=== PATIENT | male | born 1960 | race Caucasian/White ===

== ENCOUNTER → 2022-10-10 | Outpatient (CLI) | payer MEDICARE | LOC: ORTHO 13:39 | PROVIDERS: ATTEND Orthopaedic Surgery | DX: M17.11 Unilateral primary osteoarthritis, right knee (principal) | CPT/HCPCS: 20610; G0463 ==

== ENCOUNTER → 2022-11-16 | Outpatient (CLI) | payer MEDICARE ==
--- NOTE | 2022-11-16 15:38 | Diagnostic Imaging Report ---
EXAMINATION: Right hip radiographs, 2 views. COMPARISON: None. HISTORY: 62-year-old male, chronic right hip pain. FINDINGS: There is severe joint space loss of the right hip. There is nwtq-cr-nuvi articulation. There is altered morphology of the contour of the right femoral head. There is incomplete coverage of the lateral aspect of the femoral head by the acetabulum. There is a potential ossified intra-articular body measuring 16 mm in size versus prominent os acetabula. There is severe disc height loss at L4-L5. There is no identified acute fracture. IMPRESSION: 1. End-stage arthritis of the right hip with altered contour of the right femoral head which could reflect subchondral collapse. There is incomplete coverage of the lateral aspect of the femoral head by the acetabulum. There is a 16 mm potential intra-articular body versus normal variant os acetabula. 2. Severe disc degenerative changes at L4-L5. Dictated by: Dictated on workstation # [id number]
== END ==
LOC: ORTHO 14:16
PROVIDERS: ATTEND Orthopaedic Surgery
DX: M51.36 Other intervertebral disc degeneration, lumbar region (principal); M16.11 Unilateral primary osteoarthritis, right hip
CPT/HCPCS: 73502; G0463; 99213

== ENCOUNTER → 2023-01-16 | Outpatient (CLI) | payer MEDICARE ==
[2023-01-16 15:19] LABS: BILIRUBIN,URINE NEGATIVE (NEGATIVE); CLARITY,URINE CLEAR; COLOR,URINE YELLOW; GLUCOSE, URINE (UA) NEGATIVE (NEGATIVE); KETONES,URINE NEGATIVE (NEGATIVE); LEUKOCYTE ESTERASE ,URINE NEGATIVE (NEGATIVE); NITRITE,URINE NEGATIVE (NEGATIVE); PROTEIN,URINE NEGATIVE (NEGATIVE)
[2023-01-16 15:24] LABS: BASOPHILS # (AUTO) 0.1 10^3/uL (0.0-0.1); BASOPHILS % (AUTO) 1 % (0-10); EOSINOPHILS # (AUTO) 0.5 10^3/uL (0.0-0.3); EOSINOPHILS % (AUTO) 6 % (0-10); HEMATOCRIT 35 % (40-54); HEMOGLOBIN 11.3 g/dL (13.3-17.7); LYMPHOCYTES # (AUTO) 3.3 10^3/uL (1.0-4.0); LYMPHOCYTES % (AUTO) 39 % (12-44); MEAN CORPUSCULAR HEMOGLOBIN 30 pg (25-34); MEAN CORPUSCULAR HGB CONC 32 g/dL (32-36); MEAN CORPUSCULAR VOLUME 91 fL (80-99); MEAN PLATELET VOLUME 9.8 fL (9.0-12.2); MONOCYTES # (AUTO) 1.1 10^3/uL (0.0-1.0); MONOCYTES % (AUTO) 13 % (0-12); NEUTROPHILS # (AUTO) 3.4 10^3/uL (1.8-7.8); NEUTROPHILS % (AUTO) 40 % (42-75); PLATELET COUNT 468 10^3/uL (130-400); WHITE BLOOD COUNT 8.4 10^3/uL (4.3-11.0)
[2023-01-16 15:29] LABS: BACTERIA,URINE TRACE /HPF; RBC,URINE RARE /HPF
[2023-01-16 15:31] LABS: CALCIUM 9.2 MG/DL (8.5-10.1); CREATININE SERUM 1.37 MG/DL (0.60-1.30); POTASSIUM 4.1 MMOL/L (3.6-5.0)
--- NOTE | 2023-01-16 16:01 | Diagnostic Imaging Report ---
EXAMINATION: Chest 2 view HISTORY: Preoperative exam COMPARISON: None available. FINDINGS: The lungs are clear without edema or pneumonia. No pleural effusion or pneumothorax. Heart size is normal. There is a calcified granuloma in the left lung. IMPRESSION: 1. Clear lungs. Dictated by: Dictated on workstation # [id number]
--- NOTE | 2023-01-16 17:16 | Diagnostic Imaging Report ---
EXAMINATION: Right hip radiograph EXAM DATE: 01/16/2023 3:32 PM COMPARISON: None available. HISTORY: Preoperative evaluation, right hip osteoarthritis TECHNIQUE: 2 views FINDINGS: There are severe degenerative changes of the right hip with superior subluxation of the femoral head within the acetabulum. There is abnormal morphology of the femoral head with underlying sclerotic change. There are scattered small osteophytes seen within the right hip joint. No acute fracture is seen. The soft tissues are normal. IMPRESSION: 1. Advanced degenerative changes of the right hip with superior subluxation of the right femoral head within the acetabulum as well as severe joint space narrowing and abnormal morphology of the femoral head. Dictated by: Dictated on workstation # [id number]
== END ==
LOC: ORTHO 14:11
PROVIDERS: ATTEND Orthopaedic Surgery
DX: Z01.89 Encounter for other specified special examinations (principal); M16.11 Unilateral primary osteoarthritis, right hip
CPT/HCPCS: 71046; 73502; 80048; 81000; 85025; G0463; 36415; 99213

== ENCOUNTER 2023-01-29 08:33 | Outpatient (CLI) | payer MEDICARE ==
[~2023-01-29] VITALS: Ht 182.9 cm; Wt 87.3 kg
[2023-01-29 08:54] VITALS: BP 138/86
[2023-01-29] MEDS ORDERED: ESOM20CA PO (09:13)
[2023-01-29] MEDS ORDERED: FENTANYL (09:13)
[2023-01-29] MEDS ORDERED: DICL20GE TP (09:13)
[2023-01-29] MEDS ORDERED: ESCI20TA39 PO (09:13)
[2023-01-29] MEDS ORDERED: CELE-63 PO (09:13)
[2023-01-29] MEDS ORDERED: FENO160T12 PO (09:13)
[2023-01-29] MEDS ORDERED: LEVO125C4 PO (09:13)
[2023-01-29] MEDS ORDERED: CHOL62.52 PO (09:13)
[2023-01-29] MEDS ORDERED: BUPIVACAINE (09:13)
[2023-01-29] MEDS ORDERED: SUMA100T3 PO (09:13)
== END 2023-01-29 10:16 | disposition home or self-care (01) ==
LOC: PREOP 08:33
PROVIDERS: ATTEND Orthopaedic Surgery
DX: Z01.818 Encounter for other preprocedural examination (principal)

== ENCOUNTER 2023-02-05 06:05 | Inpatient (IN) | payer MEDICARE ==
[2023-01-29 09:07] LABS: CLARITY,URINE CLEAR; COLOR,URINE YELLOW; GLUCOSE, URINE (UA) NEGATIVE (NEGATIVE); PROTEIN,URINE NEGATIVE (NEGATIVE)
[2023-01-29 09:08] LABS: BACTERIA,URINE NEGATIVE /HPF; BILIRUBIN,URINE NEGATIVE (NEGATIVE); KETONES,URINE NEGATIVE (NEGATIVE); LEUKOCYTE ESTERASE ,URINE NEGATIVE (NEGATIVE); NITRITE,URINE NEGATIVE (NEGATIVE); RBC,URINE RARE /HPF; SQUAMOUS EPITHELIAL CELL,UR 0-2 /HPF
[2023-01-29 09:49] LABS: BASOPHILS # (AUTO) 0.1 10^3/uL (0.0-0.1); BASOPHILS % (AUTO) 1 % (0-10); EOSINOPHILS # (AUTO) 0.4 10^3/uL (0.0-0.3); EOSINOPHILS % (AUTO) 4 % (0-10); HEMATOCRIT 35 % (40-54); HEMOGLOBIN 11.6 g/dL (13.3-17.7); LYMPHOCYTES % (AUTO) 34 % (12-44); MEAN CORPUSCULAR HEMOGLOBIN 30 pg (25-34); MEAN CORPUSCULAR HGB CONC 33 g/dL (32-36); MEAN CORPUSCULAR VOLUME 92 fL (80-99); MEAN PLATELET VOLUME 9.9 fL (9.0-12.2); MONOCYTES # (AUTO) 1.1 10^3/uL (0.0-1.0); MONOCYTES % (AUTO) 12 % (0-12); NEUTROPHILS # (AUTO) 4.3 10^3/uL (1.8-7.8); NEUTROPHILS % (AUTO) 49 % (42-75); PLATELET COUNT 560 10^3/uL (130-400); WHITE BLOOD COUNT 8.9 10^3/uL (4.3-11.0)
[2023-01-29 10:04] LABS: POTASSIUM 4.3 MMOL/L (3.6-5.0)
[2023-01-29 10:05] LABS: CALCIUM 9.1 MG/DL (8.5-10.1)
[2023-01-29 10:10] LABS: CREATININE SERUM 1.45 MG/DL (0.60-1.30)
[2023-02-05] VITALS (13 sets, daily range): BP systolic 118–154; BP diastolic 65–86
[~2023-02-05] VITALS: Ht 182.9 cm; Wt 87.3 kg
[~2023-02-05 06:05] MED LIST: BUPIVACAINE; CELE-63 PO; CHOL62.52 PO; DICL20GE TP; ESCI20TA39 PO; ESOM20CA PO; FENO160T12 PO; FENTANYL; LEVO125C4 PO; SUMA100T3 PO
[2023-02-05] MEDS ORDERED: ceFAZolin INJECTION 2,000 MG in NS (IVPB) 50 ML 50 ML IV ONE (06:15)
[2023-02-05] MEDS: LACTATED RINGERS 1,000 ML IV PRN ×2 (06:38→09:00)
[2023-02-05] MEDS ORDERED: MIDAZOLAM INJ 2 MG/2 ML VIAL ONE (06:58)
[2023-02-05] MEDS ORDERED: dexAMETHasone INJ 10 MG/ML 1 ML VIAL ONE (06:58)
[2023-02-05] MEDS ORDERED: ONDANSETRON 4 MG/2 ML (SDV) Z0FRAN ONE (06:58)
[2023-02-05] MEDS ORDERED: proPOfol 200 MG/20 ML (DIPRIVAN) VIAL IV ONE (06:58)
[2023-02-05] MEDS ORDERED: LIDOCAINE PF 2% 5 ML VIAL ONE (06:58)
[2023-02-05] MEDS ORDERED: ROCURONIUM 50 MG/5 ML (ZEMURON) VIAL IV ONE (06:58)
[2023-02-05] MEDS ORDERED: fentaNYL INJECTION 250 MCG/5 ML VIAL ONE (06:58)
[2023-02-05] MEDS ORDERED: fentaNYL INJECTION 100 MCG/2 ML VIAL IVP ONE ×2 (07:00→10:15)
[2023-02-05] MEDS ORDERED: fentaNYL INJECTION 100 MCG/2 ML VIAL ONE (07:01)
--- NOTE | 2023-02-05 07:14 | Progress Note-Pre Operative ---
Pre-Operative Progress Note Date of Available H&P: Jan 16, 2023 Date H&P Reviewed: Feb 05, 2023 Time H&P Reviewed: 07:05 History & Physical: H&P Reviewed, Patient Examed, No changes noted Pre-Operative Diagnosis: Right Hip Primary Osteoarthritis ALBERTO MISTRY MD Feb 05, 2023 07:14
[2023-02-05] MEDS ORDERED: TRANEXAMIC ACID 100 MG/ML 10 ML INJECTION ONE (07:46)
[2023-02-05] MEDS ORDERED: BUPIVACAINE 0.5% 30 ML VIAL ONE (09:21)
[2023-02-05] MEDS ORDERED: SEVOFLURANE (ULTANE) 15 ML INHAL SOLN ONE (09:43)
--- NOTE | 2023-02-05 10:05 | Operative Report - Ortho ---
Operative Report Surgeon (s)/Family Specialist (s) Surgeon ALBERTO MISTRY MD Family Specialist n/a Pre-Operative Diagnosis Right Hip Primary Osteoarthritis Post-Operative Diagnosis same Operative Report Date of Procedure: Feb 05, 2023 Name of Procedure Performed: Right Total Hip Arthroplasty Description & Findings After obtaining informed consent and marking the patient in the preoperative holding area, the patient did receive antibiotics and was taken to the operating room. General anesthesia was induced and patient was positioned in the lateral decubitus position with the left side up. Right lower extremity was prepped and draped in the usual sterile fashion. Surgical timeout was taken. Posterolateral approach was utilized. Capsule and external rotators were taken down in one layer. Hip was dislocated without difficulty. Femoral neck osteotomy was performed and femoral head was removed. Acetabulum was exposed. Labrum and soft tissue was removed from the acetabulum. Sequential reaming was began beginning with a 50 mm reamer and reaming to a 56 mm. 56 mm trial was placed and had good fit. Trial was removed and the acetabulum was lavaged with normal saline; a 56 mm cup was impacted into place and had excellent press fit. A polyethylene liner was impacted into place and the locking mechanism was checked. Attention was turned to the femoral side, a [employer] cutter osteotome was used to removed bone near the greater trochanter. Canal finder was inserted followed by the lateralizing reamer. Sequential broaching was began with a 1 and was broached to a 7. 132 degree neck and neutral head were put into place. Hip was located and was found to have grossly equal leg lengths; the hip was stable in position of sleep, and in flexion and internal rotation. This was accepted. Hip was dislocated. Broach was removed and the canal was irrigated. A size 7 Accolade II was impacted into place and set at the same level as the broach. A neutral 36 mm ceramic head was impacted onto the juarez taper of the stem. Hip was once again located and found to have grossly equal leg lengths with stabil ity in position of sleep as well as flexion and internal rotation. Irrisept soak was performed. The wound was irrigated. Capsular layer was repaired with #2 fiberwire. The fascial layer was closed with #2 Stratafix. The subcutaneous layer was closed with 2-0 Vicryl. Skin was closed with 3-0 v- loc. Wound was dressed with steri-strips, xeroform, 4x4s, ABD, and tape. Patient was placed in abduction pillow and transferred to the hospital bed without difficulty and was stable to the recovery room. Anesthesia Type General Estimated Blood Loss 1000 mL Specimen(s) collected/removed None ALBERTO MISTRY MD Feb 05, 2023 10:05
[2023-02-05] MEDS ORDERED: MILK OF MAGNESIA 400 MG/5 ML 30 ML UDC PO PRN (10:15)
[2023-02-05] MEDS ORDERED: ONDANSETRON 4 MG/2 ML (SDV) Z0FRAN IV PRN (10:15)
[2023-02-05] MEDS ORDERED: BISACODYL 5 MG TABLET PO PRN (10:15)
[2023-02-05] MEDS ORDERED: ONDANSETRON 4 MG/2 ML (SDV) Z0FRAN IVP PRN (10:15)
[2023-02-05] MEDS ORDERED: PROMETHAZINE INJ 25 MG/ML (PHENERGAN) AMP IVP ONE (10:15)
[2023-02-05] MEDS ORDERED: SUMAtriptan 50 MG (IMITREX) TAB PO PRN (11:30)
[2023-02-05] MEDS: NS IV 1000 ML 1,000 ML IV SCH ×2 (11:38→17:07)
--- NOTE | 2023-02-05 13:03 | Occ Therapy Progress Note ---
Therapy Progress Note OT order received OT to evaluate Sunday02/06/23 JOHN CORONA OT Feb 05, 2023 13:03
[2023-02-05] MEDS: fentaNYL INJECTION 100 MCG/2 ML VIAL IVP PRN ×4 (13:05→23:30)
[2023-02-05] MEDS: oxyCODONE IMMEDIATE RELEASE 5 MG TABLET PO PRN ×3 (13:55→23:30)
--- NOTE | 2023-02-05 14:09 | Physical Therapy Evaluation ---
PT Evaluation-General Medical Diagnosis Admission Date Feb 05, 2023 at 11:03 Medical Diagnosis: right hip OA Onset Date: Feb 05, 2023 Therapy Diagnosis Therapy Diagnosis: impaired mobility/weakness Precautions Precautions/Isolations: Fall Prevention, Standard Precautions Weight Bear Status Right Lower Extremity: Right Weight Bearing/Tolerated Left Lower Extremity: Left Full Weight Bearing hip precautions Referral Physician: Selwyn Reason for Referral: Evaluation/Treatment Medical History Current History s/p elective right THR Reviewed History: Yes Social History Home: Single Level Current Living Status: Spouse Prior Prior Level of Function SCALE: Activities may be completed with or without assistive devices. 9-Xmfklnhluk-xzjxyig completes the activity by him/herself with no assistance from a helper. 5-Set-up or Clean-up Assistance-helper sets up or cleans up; patient completes activity. [place] assists only prior to or following the activity. 4-Supervision or Touching Assistance-helper provides verbal cues and/or touching/steadying and/or contact guard assistance as patient completes activ ity. Assistance may be provided throughout the activity or intermittently. 3-Partial/Moderate Assistance-helper does LESS THAN HALF the effort. [place] lifts, holds or supports trunk or limbs, but provides less than half the effort. 2-Substantial/Maximal Assistance-helper does MORE THAN HALF the effort. [place] lifts or holds trunk or limbs and provides more than half the effort. 9-Dleojinhn-uzyjpo does ALL the effort. Patient does none of the effort to complete the activity. Or, the assistance of 2 or more helpers is required for the patient to complete the activity. If activity was not attempted, code reason: 7-Patient Refused. 9-Not Applicable-not attempted and the patient did not perform the activity before the current illness, exacerbation or injury. 10-Not Attempted due to Environmental Limitations-(lack of equipment, weather restraints, etc.). 88-Not Attempted due to Medical Conditions or Safety Concerns. Bed Mobility: 6 Transfers (B,C,W/C): 6 Gait: 6 Stairs: 6 Indoor Mobility (Ambulation): Independent Stairs: Independent PT Evaluation-Current Subjective Patient agrees to PT. Very "groggy". 10/10 right hip pain with meds issued. Pain Numeric Pain Scale: 10-Worst Possible Pain Location: Right Location Body Site: Hip Pain Description: Acute Objective Patient Orientation: Normal For Age Attachments: Pathak Catheter, IV ROM/Strength ROM Lower Extremities right hip precautions/left LE WFL Strength Lower Extremities right LE 3/5 grossly; left LE 4/5 grossly Integumentary/Posture Bladder Incontinence: Pathak Cath Posture WFL Neuromuscular (Tone, Coordination, Reflexes) grossly intact Sensory Vision: Functional Hearing: Functional Transfers Sit to Lying (QC): 3 Lying to Sitting/Side of Bed(Q: 3 Sit to Stand (QC): 3 Gait Mode of Locomotion: Walk Anticipated Mode of Locomotion: Walk Walk 10 feet (QC): 3 Walk 50 ft with 2 Turns(QC): 88 Walk 150 ft (QC): 88 Distance: 10' Gait Assistive Device: FWW Comments/Gait Description slow, antalgic Balance Sitting Static: Normal Sitting Dynamic: Normal Standing Static: Fair Standing Dynamic: Fair Assessment/Needs Patient will benefit from skilled PT to address functional strength and mobility to improve current LOF to safely return to home at maximum LOF. Rehab Potential: Fair PT Nursing Home Goals Senior Product Development Manager Goals PT Senior Product Development Manager Goals Time Frame: Feb 17, 2023 Roll Left & Right (QC): 6 Sit to Lying (QC): 6 Lying-Sitting on Side/Bed(QC): 6 Sit to Stand (QC): 6 Chair/Mxa-zf-Rarvd Xfer(QC): 6 Toilet Transfer (QC): 6 Walk 10 feet (QC): 6 Walk 50ft with 2 Turns (QC): 6 Walk 150 ft (QC): 6 PT Plan Problem List Problem List: Activity Tolerance, Functional Strength, Balance, Gait, Transfer, Bed Mobility Treatment/Plan Treatment Plan: Continue Plan of Care Treatment Plan: Bed Mobility, Education, Functional Activity Davy, Functional Strength, Gait, Safety, Therapeutic Exercise, Transfers Treatment Duration: Feb 17, 2023 Frequency: 11 times per week Estimated Hrs Per Day: .5 hour per day Patient and/or Family Agrees t: Yes Time Time In: 1320 Time Out: 1336 DATE: Feb 05, 2023 Total Billed Treatment Time: 16 Total Billed Treatment 1 visit EVMod 16 min JOB KRISHNAMURTHY PT Feb 05, 2023 14:09
--- NOTE | 2023-02-05 14:13 | Diagnostic Imaging Report ---
INDICATION: Status post right hip arthroplasty COMPARISON: 01/17/2020 TECHNIQUE: 2 radiographs of the pelvis are obtained dated 02/05/2023 FINDINGS: Recent interval placement of a right total hip arthroplasty is noted with postsurgical soft tissue gas within the region. No evidence of hardware complication. Pump is noted overlying the left pelvis with catheter extending to overlie the lumbar spine. Moderate degenerative changes of the partially visualized lumbar spine with associated osteophyte formation. Sacroiliac joints and pubic symphysis are intact. No acute fracture or dislocation. No destructive osseous process. Mild to moderate degenerative changes of the left hip. The junction of the left femoral head and neck demonstrates a convex margin. No suspicious radiopaque foreign body. IMPRESSION: Recent placement of a right total hip arthroplasty without hardware complication or acute osseous abnormality. Scattered degenerative changes, including within the lumbar spine and left hip. Configuration of the left femoral head and neck is present which can be seen with femoral acetabular impingement syndrome, CAM type. Dictated by: Dictated on workstation # [id number]
[2023-02-05] MEDS ORDERED: ceFAZolin INJECTION 2,000 MG ONE ×2 (14:40→20:07)
[2023-02-05] MEDS: ceFAZolin INJECTION 2,000 MG in NS (IVPB) 50 ML 50 ML IV SCH ×2 (14:46→20:14)
[2023-02-05] MEDS: ASPIRIN enteric coated 81MG TABLET PO SCH (17:03)
[2023-02-05] MEDS: ACETAMINOPHEN 500 MG TABLET PO PRN (17:03)
[2023-02-05] MEDS: CELECOXIB 100 MG CAPSULE PO SCH (20:01)
[2023-02-05] MEDS: DOCUSATE SODIUM 100 MG CAPSULE PO SCH (20:01)
[2023-02-05] MEDS ORDERED: NS (IVPB) 50 ML 50 ML ONE (20:07)
[2023-02-05] MEDS ORDERED: CELECOXIB 100 MG CAPSULE PO SCH (21:00)
[2023-02-06] MEDS: NS IV 1000 ML 1,000 ML IV SCH ×2 (00:34→07:43)
[2023-02-06] MEDS: fentaNYL INJECTION 100 MCG/2 ML VIAL IVP PRN ×13 (00:37→21:54)
[2023-02-06 03:16] VITALS: BP 140/73
[2023-02-06] MEDS: ACETAMINOPHEN 500 MG TABLET PO PRN ×3 (03:22→14:45)
[2023-02-06] MEDS: oxyCODONE IMMEDIATE RELEASE 5 MG TABLET PO PRN ×5 (03:22→21:52)
[2023-02-06] MEDS: THERAPEUTIC MULTIVITAMIN W/MINERALS TABLET PO SCH (05:16)
[2023-02-06] MEDS: LEVOTHYROXINE 125 MCG TABLET PO SCH (05:16)
[2023-02-06 05:28] LABS: HEMOGLOBIN 9.8 g/dL (13.3-17.7)
[2023-02-06 07:03] VITALS: BP 142/75
[2023-02-06] MEDS: CELECOXIB 100 MG CAPSULE PO SCH ×2 (07:38→19:35)
[2023-02-06] MEDS: CITALOPRAM 20 MG TABLET PO SCH (07:39)
[2023-02-06] MEDS: PANTOPRAZOLE 20 MG TABLET (PROTONIX) PO SCH (07:39)
[2023-02-06] MEDS: DOCUSATE SODIUM 100 MG CAPSULE PO SCH ×2 (07:39→19:36)
[2023-02-06] MEDS: ASPIRIN enteric coated 81MG TABLET PO SCH ×2 (07:39→17:13)
--- NOTE | 2023-02-06 07:39 | Anesthesia-General Post-Op ---
General Patient Condition Mental Status/LOC: Same as Preop Cardiovascular: Satisfactory Nausea/Vomiting: Absent Respiratory: Satisfactory Pain: Controlled Complications: Absent Post Op Complications Complications None Follow Up Care/Instructions Patient Instructions None needed. Anesthesia/Patient Condition Patient Condition Patient is doing well, no complaints, stable vital signs, no apparent adverse anesthesia problems. No complications reported per nursing. DELORIS AGUILAR CRNA Feb 06, 2023 07:39
[2023-02-06] MEDS: FENOFIBRATE, Micronized 134 MG CAPSULE PO SCH (07:43)
--- NOTE | 2023-02-06 08:24 | Progress Note - Ortho ---
Progress Note Subjective Date of Exam 02/06/23 Chief Complaint POD #1 R MARY HPI/Events since last exam pain better this AM, was able to be up out of bed yesterday, pain currently controlled Review of Systems - Allergies: Coded Allergies: hydromorphone (Verified Allergy, Mild, EYE MUSCLE SPASMS, 01/29/23) morphine (Verified Allergy, Mild, HEADACHES, 01/29/23) Home Meds Reported Medications Diclofenac Sodium (Voltaren Arthritis Pain) 1 % Gel..gram., 20 GM TP NEEDED, EA 01/29/23 Cholecalciferol (Vitamin D3) (Vitamin D3) 62.5 Mcg (2500 Unit) Capsule, 62.5 MCG PO DAILY, CAP 01/29/23 Esomeprazole Magnesium (Nexium) 20 Mg Capsule.dr, 20 MG PO DAILY, CAP 01/29/23 Sumatriptan Succinate (Sumatriptan Succinate) 100 Mg Tablet, 100 MG PO NEEDED for Headache MDD 200, TAB 01/29/23 Levothyroxine Sodium (Levothyroxine) 125 Mcg Capsule, 125 MCG PO DAILY, CAP 01/29/23 Fenofibrate (Fenofibrate) 160 Mg Tablet, 160 MG PO DAILY, TAB 01/29/23 Escitalopram Oxalate (Escitalopram Oxalate) 20 Mg Tablet, 20 MG PO DAILY, TAB 01/29/23 Celecoxib (Celecoxib) 200 Mg Capsule, 200 MG PO BID for Pain, CAP 01/29/23 [Fentanyl/Bupivicain ] No Conflict Check 01/29/23 Objective Exam R Hip: Dressing C/D/I, + DF of ankle, no s/s of DVT Vital Signs Vital Signs Date Time Temp Pulse Resp B/P (MAP) Pulse Ox O2 Delivery O2 Flow Rate FiO2 02/06/23 07:03 36.6 77 17 142/75 (97) 95 Room Air 02/06/23 04:15 36.8 02/06/23 03:22 38.0 02/06/23 03:16 38.0 87 18 140/73 (95) 95 Room Air 02/05/23 23:00 37.0 93 18 138/77 (97) 96 Room Air 02/05/23 20:00 Room Air 02/05/23 19:57 37.6 100 20 154/80 (104) 94 Room Air 02/05/23 15:55 Room Air 02/05/23 15:46 36.6 99 20 132/73 (92) 95 02/05/23 11:10 36.6 84 20 144/70 (94) 100 Room Air 02/05/23 10:55 Room Air 02/05/23 10:55 36.7 20 141/84 (103) 100 Room Air 02/05/23 10:50 20 143/82 (102) 100 Room Air 02/05/23 10:43 Room Air 02/05/23 10:40 18 146/84 (104) 100 Room Air 02/05/23 10:38 Room Air 02/05/23 10:30 20 143/84 (103) 100 OxyMask 3.00 02/05/23 10:24 OxyMask 3.00 02/05/23 10:20 20 143/84 (103) 100 OxyMask 6.00 02/05/23 10:15 OxyMask 6.00 02/05/23 10:10 20 148/71 (96) 100 OxyMask 6.00 02/05/23 10:03 OxyMask 6.00 02/05/23 10:03 20 131/86 (101) 100 OxyMask 6.00 02/05/23 09:57 OxyMask 6.00 02/05/23 09:57 36.5 22 118/65 (82) 97 OxyMask 6.00 I & O 02/06/23 07:00 Intake Total 2650 ml Output Total 4900 ml Balance -2250 ml Lab Results Laboratory Tests 02/06/23 05:06: Hemoglobin 9.8L, Hematocrit 30L Microbiology 01/29/23 MRSA Screen - Final, Complete MRSA not isolated Imaging Postop AP Pelvis dated 02/05/23 was reviewed from PACS and demonstrated right total hip arthroplasty with components in good position Assessment and Plan Assessment Right Hip Osteoarthritis s/p MARY Problem List Right Hip Osteoarthritis s/p MARY Plan PT/OT DVT Prophylaxis Plan for home with home health therapy tomorrow Final Diagonsis Right Hip Osteoarthritis s/p MARY Level of the visit: Level 3 (global) ALBERTO MISTRY MD Feb 06, 2023 08:24
[2023-02-06] MEDS ORDERED: CHOL20003 PO (09:28)
[2023-02-06] MEDS ORDERED: CNC1KV IM (09:28)
[2023-02-06] MEDS ORDERED: LEVO125T6 PO (09:28)
--- NOTE | 2023-02-06 10:33 | Occupational Therapy Eval ---
OT Evaluation-General/PLF Medical Diagnosis Admission Date Feb 05, 2023 at 11:03 Medical Diagnosis: right hip OA Onset Date: Feb 05, 2023 Therapy Diagnosis Therapy Diagnosis: weakness, s/p RTA Precautions Precautions/Isolations: Standard Precautions Weight Bear Status Weight Bearing Restriction: Weight Bearing/Tolerated Location Restriction: R LE Referral Physician: Selwyn Referral Reason: Activity Tolerance, Self Care, Evaluation/Treatment, Strengthening/ROM Medical History Pertinent Medical History: OA Reviewed History: Yes Social History Home: Single Level Current Living Status: Spouse ADL-Prior Level of Function SCALE: Activities may be completed with or without assistive devices. 8-Lsgcjlrkaj-bvtfgnq completes the activity by him/herself with no assistance from a helper. 5-Set-up or Clean-up Assistance-helper sets up or cleans up; patient completes a ctivity. [place] assists only prior to or following the activity. 4-Supervision or Touching Assistance-helper provides verbal cues and/or touching/steadying and/or contact guard assistance as patient completes activity. Assistance may be provided throughout the activity or intermittently. 3-Partial/Moderate Assistance-helper does LESS THAN HALF the effort. [place] lifts, holds or supports trunk or limbs, but provides less than half the effort. 2-Substantial/Maximal Assistance-helper does MORE THAN HALF the effort. [place] lifts or holds trunk or limbs and provides more than half the effort. 8-Usundhmhj-ljhfxr does ALL the effort. Patient does none of the effort to complete the activity. Or, the assistance of 2 or more helpers is required for the patient to complete the activity. If activity was not attempted, code reason: 7-Patient Refused. 9-Not Applicable-not attempted and the patient did not perform the activity before the current illness, exacerbation or injury. 10-Not Attempted due to Environmental Limitations-(lack of equipment, weather restraints, etc.). 88-Not Attempted due to Medical Conditions or Safety Concerns. Self Care: Independent (uses band saw runner) Functional Cognition: Independent DME/Equipment: Shower DME/Equipment Comments hip kit Drive Self: Yes OT Current Status Subjective Up in recliner, agreeable to OT, wishes to go home tomorrow Mental Status/Objective Patient Orientation: Person, Place, Time, Situation Current Glasses/Contacts: Yes Hearing Aids: No Dentures/Partials: No Hand Dominance: Right Upper Extremity ROM BUE ROM WFLs Upper Extremity Coordination INTACT Upper Extremity Sensation INTACT Upper Extremity Strength -4/5 grossly, fatigue w/ duration of ambulation ADL-Treatment Eating (QC): 6 Oral Hygiene (QC): 5 Shower/Bathe Self (QC): 88 Upper Body Dressing (QC): 5 Lower Body Dressing (QC): 4 (w/ dressing tools in hip kit) On/Off Footwear (QC): 5 (assistance w/ sock martha) Toileting Hygiene (QC): 5 Recall 1/3 MARY precautions, OT provided recall and intervention and patient recalls 3/3 at end of session Education OT Patient Education: Correct positioning, Energy conservation, Exercise program, Modified ADL techniques, Progress toward Goal/Update tx plan, Purpose of tx/functional activities, Reviewed precautions, Rehab process, Safety issues, Transfer techniques, Use of adapted equipment Teaching Recipient: Patient Teaching Methods: Demonstration, Handout (written), Discussion Response to Teaching: Verbalize Understanding, Reinforcement Needed OT Halfway Goals Halfway Goals Eating (QC): 6 Oral Hygiene (QC): 6 Toileting Hygiene (QC): 6 Shower/Bathe Self (QC): 5 Upper Body Dressing (QC): 6 Lower Body Dressing (QC): 6 On/Off Footwear (QC): 6 1=Demonstrate adherence to instructed precautions during ADL tasks. 2=Patient will verbalize/demonstrate understanding of assistive devices/modifications for ADL. 3=Patient will improve strength/tolerance for activity to enable patient to perform ADL's. OT Education/Plan Problem List/Assessment Assessment: Decreased Activ Tolerance, Impaired Self-Care Skills Discharge Recommendations Plan/Recommendations: Continue POC Treatment Plan/Plan of Care Treatment,Training & Education: Yes Patient would benefit from OT for education, treatment and training to promote independence in ADL's, mobility, safety and/or upper extremity function for ADL's. Plan of Care: ADL Retraining, Concurrent Therapy, Functional Mobility, Group Exercise/Act as Ind, UE Funct Exercise/Act Treatment Duration: Feb 06, 2023 Frequency: 3 times per week (3-5 times per week) Estimated Hrs Per Day: .25 hour per day Agreement: Yes Rehab Potential: Fair Time Start Time: 10:15 Stop Time: 10:35 DATE: Feb 06, 2023 Total Time Billed (hr/min): 20 Billed Treatment Time EVM 20 min JOHN CORONA OT Feb 06, 2023 10:33
[2023-02-06 11:08] VITALS: BP 124/71
--- NOTE | 2023-02-06 11:49 | Physical Therapy Daily Note ---
PT Daily Note-Current Subjective Patient is very agreeable to participate with PT. Pain Numeric Pain Scale: 7 Location: Right Location Body Site: Hip Pain Description: Acute Section J - Health Conditions 1. Rarely or not at all 2. Occasionally 3. Frequently 4. Almost constantly 8. Unable to answer Pain Effect on Sleep: 1 Pain Interference with Therapy: 1 Pain Interference w/Day-to-Day: 1 Mental Status Patient Orientation: Normal For Age Transfers SCALE: Activities may be completed with or without assistive devices. 2-Zyiggeenzt-khubdpp completes the activity by him/herself with no assistance from a helper. 5-Set-up or Clean-up Assistance-helper sets up or cleans up; patient completes activity. [place] assists only prior to or following the activity. 4-Supervision or Touching Assistance-helper provides verbal cues and/or touching/steadying and/or contact guard assistance as patient completes activity. Assistance may be provided throughout the activity or intermittently. 3-Partial/Moderate Assistance-helper does LESS THAN HALF the effort. [place] lifts, holds or supports trunk or limbs, but provides less than half the effort. 2-Substantial/Maximal Assistance-helper does MORE THAN HALF the effort. [place] lifts or holds trunk or limbs and provides more than half the effort. 2-Muwhpqunz-mudhfp does ALL the effort. Patient does none of the effort to complete the activity. Or, the assistance of 2 or more helpers is required for the patient to complete the activity. If activity was not attempted, code reason: 7-Patient Refused. 9-Not Applicable-not attempted and the patient did not perform the activity before the current illness, exacerbation or injury. 10-Not Attempted due to Environmental Limitations-(lack of equipment, weather restraints, etc.). 88-Not Attempted due to Medical Conditions or Safety Concerns. Lying to Sitting/Side of Bed(Q: 3 Sit to Stand (QC): 4 Chair/Oue-aw-Jvfuu Xfer(QC): 4 Weight Bearing Right Lower Extremity: Right Weight Bearing/Tolerated Left Lower Extremity: Left Full Weight Bearing hip precautions Gait Training Distance: 225' Walk 10 feet (QC): 4 Walk 50 ft with 2 Turns(QC): 4 Walk 150 ft (QC): 4 Gait Assistive Device: FWW steady, reciprocal pattern Exercises Seated Therapy Exercises: Ankle pumps, Long arc quads Seated Reps: 15 Assessment Patient up in recliner with needs met. PT to continue to increase activity as tolerated by patient. PT Physician Relations Manager Goals Assisted Goals PT Assisted Goals Time Frame: Feb 17, 2023 Roll Left & Right (QC): 6 Sit to Lying (QC): 6 Lying-Sitting on Side/Bed(QC): 6 Sit to Stand (QC): 6 Chair/Wkc-bu-Leije Xfer(QC): 6 Toilet Transfer (QC): 6 Walk 10 feet (QC): 6 Walk 50ft with 2 Turns (QC): 6 Walk 150 ft (QC): 6 PT Plan Treatment/Plan Treatment Plan: Continue Plan of Care Treatment Plan: Bed Mobility, Education, Functional Activity Davy, Functional Strength, Gait, Safety, Therapeutic Exercise, Transfers Treatment Duration: Feb 17, 2023 Frequency: 11 times per week Estimated Hrs Per Day: .5 hour per day Patient and/or Family Agrees t: Yes Time Time In: 954 Time Out: 1006 DATE: Feb 06, 2023 Total Billed Treatment Time: 12 Total Billed Treatment 1 visit GT 12 min JOB KRISHNAMURTHY PT Feb 06, 2023 11:49
--- NOTE | 2023-02-06 13:54 | Physical Therapy Daily Note ---
PT Daily Note-Current Subjective Patient agrees to PT. Pain Numeric Pain Scale: 7 Location: Right Location Body Site: Hip Pain Description: Acute Section J - Health Conditions 1. Rarely or not at all 2. Occasionally 3. Frequently 4. Almost constantly 8. Unable to answer Pain Effect on Sleep: 1 Pain Interference with Therapy: 1 Pain Interference w/Day-to-Day: 1 Mental Status Patient Orientation: Normal For Age Transfers SCALE: Activities may be completed with or without assistive devices. 1-Qidjhhtrvh-uidnjvm completes the activity by him/herself with no assistance from a helper. 5-Set-up or Clean-up Assistance-helper sets up or cleans up; patient completes activity. [place] assists only prior to or following the activity. 4-Supervision or Touching Assistance-helper provides verbal cues and/or touching/steadying and/or contact guard assistance as patient completes activity. Assistance may be provided throughout the activity or intermittently. 3-Partial/Moderate Assistance-helper does LESS THAN HALF the effort. [place] lifts, holds or supports trunk or limbs, but provides less than half the effort. 2-Substantial/Maximal Assistance-helper does MORE THAN HALF the effort. [place] lifts or holds trunk or limbs and provides more than half the effort. 9-Iorlunwzq-stavwn does ALL the effort. Patient does none of the effort to complete the activity. Or, the assistance of 2 or more helpers is required for the patient to complete the activity. If activity was not attempted, code reason: 7-Patient Refused. 9-Not Applicable-not attempted and the patient did not perform the activity before the current illness, exacerbation or injury. 10-Not Attempted due to Environmental Limitations-(lack of equipment, weather restraints, etc.). 88-Not Attempted due to Medical Conditions or Safety Concerns. Sit to Lying (QC): 6 Lying to Sitting/Side of Bed(Q: 6 Sit to Stand (QC): 5 Weight Bearing Right Lower Extremity: Right Weight Bearing/Tolerated Left Lower Extremity: Left Full Weight Bearing hip precautions Gait Training Distance: 250' Walk 10 feet (QC): 5 Walk 50 ft with 2 Turns(QC): 5 Walk 150 ft (QC): 5 Gait Assistive Device: FWW slow, steady, reciprocal pattern Assessment Patient returned to bed due to fatigue. Continue to address functional mobility and strength. Patient reports compliance with exercise. PT Usp Goals Usp Goals PT Usp Goals Time Frame: Feb 17, 2023 Roll Left & Right (QC): 6 Sit to Lying (QC): 6 Lying-Sitting on Side/Bed(QC): 6 Sit to Stand (QC): 6 Chair/Baa-al-Jkepl Xfer(QC): 6 Toilet Transfer (QC): 6 Walk 10 feet (QC): 6 Walk 50ft with 2 Turns (QC): 6 Walk 150 ft (QC): 6 PT Plan Treatment/Plan Treatment Plan: Continue Plan of Care Treatment Plan: Bed Mobility, Education, Functional Activity Davy, Functional Strength, Gait, Safety, Therapeutic Exercise, Transfers Treatment Duration: Feb 17, 2023 Frequency: 11 times per week Estimated Hrs Per Day: .5 hour per day Patient and/or Family Agrees t: Yes Time Time In: 1325 Time Out: 1335 DATE: Feb 06, 2023 Total Billed Treatment Time: 10 Total Billed Treatment 1 visit GT 10 min JOB KRISHNAMURTHY PT Feb 06, 2023 13:54
[2023-02-06 15:38] VITALS: BP 113/63
[2023-02-06 19:44] VITALS: BP 119/59
[2023-02-06 23:50] VITALS: BP 127/68
[2023-02-07] MEDS: fentaNYL INJECTION 100 MCG/2 ML VIAL IVP PRN ×4 (00:03→10:15)
[2023-02-07 05:39] LABS: HEMOGLOBIN 8.8 g/dL (13.3-17.7)
[2023-02-07] MEDS: THERAPEUTIC MULTIVITAMIN W/MINERALS TABLET PO SCH (06:05)
[2023-02-07] MEDS: LEVOTHYROXINE 125 MCG TABLET PO SCH (06:05)
[2023-02-07 07:26] VITALS: BP 134/62
[2023-02-07] MEDS: FENOFIBRATE, Micronized 134 MG CAPSULE PO SCH (08:03)
[2023-02-07] MEDS: PANTOPRAZOLE 20 MG TABLET (PROTONIX) PO SCH (08:03)
[2023-02-07] MEDS: DOCUSATE SODIUM 100 MG CAPSULE PO SCH (08:04)
[2023-02-07] MEDS: CELECOXIB 100 MG CAPSULE PO SCH (08:04)
[2023-02-07] MEDS: CITALOPRAM 20 MG TABLET PO SCH (08:04)
[2023-02-07] MEDS: ASPIRIN enteric coated 81MG TABLET PO SCH (08:04)
[2023-02-07] MEDS ORDERED: CYCL10TA25 PO (08:22)
[2023-02-07] MEDS ORDERED: OXC5T PO (08:22)
[2023-02-07] MEDS ORDERED: ASPI-1238 PO (08:22)
--- NOTE | 2023-02-07 08:25 | Discharge Summary ---
Discharge Summary Hospital Course Hospital Course Date of Admission: Feb 05, 2023 at 11:03 Admission Diagnosis : Right Hip Osteoarthritis Family Physician/Provider: Date of Discharge: 02/07/23 Discharge Diagnosis: [Right Hip Osteoarthritis s/p MARY ] Hospital Course: [On 02/05/23, patient underwent right total hip arthroplasty. Tolerated the procedure well and was transferred to the regular floor. On the day of surgery, began mechanical DVT prophylaxis and started to work with therapy. On POD #1, made good progress with therapy and began chemical DVT prophylaxis. On POD #2, continued to make progress with therapy and home health therapy arrangements were made. Patient was ready for discharge home. ] Labs and Pending Lab Test: Laboratory Tests 02/07/23 05:35: Hemoglobin 8.8L, Hematocrit 27L Microbiology 01/29/23 MRSA Screen - Final, Complete MRSA not isolated Home Meds Active Cyclobenzaprine HCl 10 Mg Tablet 10 Mg PO Q8H 10 Days Aspirin EC (Aspirin) 81 Mg Tablet.dr 81 Mg PO BID WITH MEALS 35 Days Reported Cyanocobalamin Injection (Cyanocobalamin) 1,000 Mcg/Ml Inj 1 Ml IM EVERY 2 WEEKS Levothyroxine Sodium 125 Mcg Tablet 125 Mcg PO DAILY Vitamin D3 (Cholecalciferol (Vitamin D3)) 50 Mcg (2000 Unit) Capsule 50 Mcg PO DAILY Sumatriptan Succinate 100 Mg Tablet 100 Mg PO UD PRN MDD 200MG MAY REPEAT 1 DOSE AFTER 2 HOURS IF SYMPTOMS PERSIST Fenofibrate 160 Mg Tablet 160 Mg PO DAILY Escitalopram Oxalate 20 Mg Tablet 20 Mg PO DAILY Celecoxib 200 Mg Capsule 200 Mg PO DAILY Assessment/Pt Instructions WBAT on right leg. Walker for assistance. Posterior dislocation precautions. Dry dressing to daily to site; keep incision site dry. Home health therapy for motion/strengthening/gait training. F/U with Dr. Gen Samano in ~2 weeks after surgery. Discharge Instructions Discharge Diet: No Restrictions Discharge Physical Examination Vital Signs Vital Signs Date Time Temp Pulse Resp B/P (MAP) Pulse Ox O2 Delivery O2 Flow Rate FiO2 02/07/23 07:26 36.6 88 16 134/62 (86) 97 Room Air 02/05/23 10:30 3.00 Extremity: Other (R Hip: Dressing c/d/i, +DF of ankle, no s/s of DVT) Allergies: Coded Allergies: hydromorphone (Verified Allergy, Mild, EYE MUSCLE SPASMS, 01/29/23) morphine (Verified Allergy, Mild, HEADACHES, 01/29/23) Discharge Summary Date of Admission Feb 05, 2023 at 11:03 Date of Discharge GEN SAMANO MD Feb 07, 2023 08:25
--- NOTE | 2023-02-07 08:26 | D/C HH Face to Face Order ---
D/C Face to Face Orders Instructions for Patient Via [facility], Patient Instructions/FollowUp: WBAT on right leg. Walker for assistance. Posterior dislocation precautions. Dry dressing to daily to site; keep incision site dry. Home health therapy for motion/strengthening/gait training. F/U with Dr. Gen Samano in ~2 weeks after surgery. Physician to follow Patient: Gen Samano Discharge Diet for Home: No Restrictions Patient Data-Allergies,Ht & Wt Patient Allergies: Coded Allergies: hydromorphone (Verified Allergy, Mild, EYE MUSCLE SPASMS, 01/29/23) morphine (Verified Allergy, Mild, HEADACHES, 01/29/23) Home Health Need/Face to Face Date of Face to Face: Feb 07, 2023 Clinical Findings: Muscle weakness, Pain with ambulation I have seen Pt qvra-au-mlxh: Yes Discharged To: Home Diagnosis/Conditions: Right Hip Osteoarthritis s/p MARY Patient is Homebound due to: Muscle weakness, Pain w/ambulation Homebound Status Due to the above stated illness, injury or surgical procedure (medical condition or diagnosis) and associated clinical findings, the patient is homebound because of his/her inability to leave home except with aid of a supportive device and/or person AND leaving the home requires a considerable and taxing effort or is medically contraindicated. Pt req the following assistanc: Walker Home Health Nursing Orders Home Health Services Order: Physical Therapy-Evaluate & Treat Home Health Infusion Therapy Line Start Date: Feb 05, 2023 Therapy Orders Therapy Specific Orders: Gait training, Increase strength/endurance, Restore ROM Certify Stmt I certify that this patient is under my care and that I, a nurse practitioner or a physician; a assistant track coach working with me, had a face to face encounter that - meets the physician face to face encounter requirements with this patient as dated. GEN SAMANO MD Feb 07, 2023 08:26
--- NOTE | 2023-02-07 10:23 | Physical Therapy Daily Note ---
PT Daily Note-Current Subjective Patient lying supine in bed upon PT arrival, agreeable to treatment. Patient rates pain at 5/10 in right hip. Pain Section J - Health Conditions 1. Rarely or not at all 2. Occasionally 3. Frequently 4. Almost constantly 8. Unable to answer Pain Effect on Sleep: 1 Pain Interference with Therapy: 1 Pain Interference w/Day-to-Day: 1 Mental Status Patient Orientation: Person, Place, Time, Situation Transfers SCALE: Activities may be completed with or without assistive devices. 9-Irvvvsbuky-citrplw completes the activity by him/herself with no assistance from a helper. 5-Set-up or Clean-up Assistance-helper sets up or cleans up; patient completes activity. [place] assists only prior to or following the activity. 4-Supervision or Touching Assistance-helper provides verbal cues and/or touchin g/steadying and/or contact guard assistance as patient completes activity. Assistance may be provided throughout the activity or intermittently. 3-Partial/Moderate Assistance-helper does LESS THAN HALF the effort. [place] lifts, holds or supports trunk or limbs, but provides less than half the effort. 2-Substantial/Maximal Assistance-helper does MORE THAN HALF the effort. [place] lifts or holds trunk or limbs and provides more than half the effort. 7-Egqqavqrw-sqqavt does ALL the effort. Patient does none of the effort to complete the activity. Or, the assistance of 2 or more helpers is required for the patient to complete the activity. If activity was not attempted, code reason: 7-Patient Refused. 9-Not Applicable-not attempted and the patient did not perform the activity before the current illness, exacerbation or injury. 10-Not Attempted due to Environmental Limitations-(lack of equipment, weather restraints, etc.). 88-Not Attempted due to Medical Conditions or Safety Concerns. Roll Left & Right (QC): 4 Sit to Lying (QC): 4 Lying to Sitting/Side of Bed(Q: 4 Sit to Stand (QC): 4 Chair/Hlt-zt-Bwrrj Xfer(QC): 4 Weight Bearing Right Lower Extremity: Right Weight Bearing/Tolerated Left Lower Extremity: Left Full Weight Bearing hip precautions Gait Training Does the Patient Walk?: Yes Distance: 300' Walk 10 feet (QC): 4 Walk 50 ft with 2 Turns(QC): 4 Walk 150 ft (QC): 4 Gait Assistive Device: FWW Stair Training Stair Training: Handrails/: 1 handrail, uses walker #of Steps: 3 1 Step (curb) (QC): 4 4 Steps (QC): 4 Assessment Current Status: Good Progress Patient tolerated treatment well. Patient ambulates 300 feet with FWW with SBA. Patient ascends/descends 3 steps with left handrail and FWW. Patient in chair post treatment with all needs met, nursing notified, call light in reach. PT Perforator Loader Goals Perforator Loader Goals PT Group Home Goals Time Frame: Feb 17, 2023 Roll Left & Right (QC): 6 Sit to Lying (QC): 6 Lying-Sitting on Side/Bed(QC): 6 Sit to Stand (QC): 6 Chair/Ajz-qy-Fogjr Xfer(QC): 6 Toilet Transfer (QC): 6 Walk 10 feet (QC): 6 Walk 50ft with 2 Turns (QC): 6 Walk 150 ft (QC): 6 PT Plan Treatment/Plan Treatment Plan: Continue Plan of Care Treatment Plan: Bed Mobility, Education, Functional Activity Davy, Functional Strength, Gait, Safety, Therapeutic Exercise, Transfers Treatment Duration: Feb 17, 2023 Frequency: 11 times per week Estimated Hrs Per Day: .5 hour per day Patient and/or Family Agrees t: Yes Safety Risks/Education Patient Education: Gait Training, Transfer Techniques, Steps Time Time In: 835 Time Out: 900 DATE: Feb 07, 2023 Total Billed Treatment Time: 25 Total Billed Treatment Visit, GT (2) VASILE MONTES PT Feb 07, 2023 10:23
[2023-02-07 11:12] VITALS: BP 112/68
[2023-02-07] MEDS: oxyCODONE IMMEDIATE RELEASE 5 MG TABLET PO PRN (13:49)
[2023-02-07 15:42] VITALS: BP 107/60
[2023-02-07 17:26] VITALS: BP 107/60
== END 2023-02-07 17:23 | disposition home health service (06) | DRG 470 ==
LOC: SDC 06:05 → 4TH 11:03
PROVIDERS: ADMIT Orthopaedic Surgery; ATTEND Orthopaedic Surgery
PROC: 0SR904A Replacement of Right Hip Joint with Ceramic on Polyethylene Synthetic Substitute, Uncemented, Open Approach (ICD-10-PCS; principal; 2023-02-05 07:20)
DX: M16.11 Unilateral primary osteoarthritis, right hip (principal); Z79.899 Other long term (current) drug therapy
CPT/HCPCS: 36415; 72170; 80048; 81000; 85014; 85018; 85025; 87081; 93005

== ENCOUNTER → 2023-02-20 | Outpatient (CLI) | payer MEDICARE ==
[~2023-02-20] MED LIST changes: +ASPI-1238 PO; +CHOL20003 PO; +CNC1KV IM; +CYCL10TA25 PO; +LEVO125T6 PO; +OXC5T PO
== END ==
LOC: ORTHO 08:50
PROVIDERS: ATTEND Orthopaedic Surgery
DX: Z47.89 Encounter for other orthopedic aftercare (principal)

== ENCOUNTER → 2023-05-03 | Outpatient (CLI) | payer MEDICARE ==
[~2023-05-03] MED LIST changes: -CELE-63 PO; +CELE-91 PO
== END ==
LOC: ORTHO 10:42
PROVIDERS: ATTEND Orthopaedic Surgery
DX: Z47.89 Encounter for other orthopedic aftercare (principal)